=== PATIENT | female | born 1965 | race Caucasian/White ===

== ENCOUNTER → 2016-11-27 | Outpatient (CLI) | payer MEDICAID ==
[~2016-11-27] MED LIST: AMOX1TAB64 PO; BLOOD PRESSURE MED PO; FURO20TA3 PO; FURO40TA6 PO; KETOROLAC 30 MG/1 ML ONE; NICO1PAT4 TD; OXYC-302 PO; Oxycodone Hcl/Acetaminophen PO; POTA20TA14 PO; POTA20TA6 PO
[2016-11-27 14:51] LABS: ASPARTATE AMINO TRANSFERASE 81 U/L (15-37); BLOOD UREA NITROGEN 18 mg/dL (7-18)
== END | disposition home or self-care (01) ==
LOC: STAR 13:25
PROVIDERS: ATTEND Surgery
DX: Z01.818 Encounter for other preprocedural examination (principal); M65.022 Abscess of tendon sheath, left upper arm; L02.413 Cutaneous abscess of right upper limb
CPT/HCPCS: 36415; 80053; 85025

== ENCOUNTER 2016-12-01 08:09 | Day surgery (SDC) | payer MEDICAID ==
[~2016-12-01] VITALS: Ht 162.6 cm; Wt 62.0 kg
[~2016-12-01 08:09] MED LIST changes: -KETOROLAC 30 MG/1 ML ONE
[2016-12-01 08:41] VITALS: BP 184/108
[2016-12-01] MEDS ORDERED: LACTATED RINGERS 1,000 ML IV SCH (08:41)
[2016-12-01] MEDS ORDERED: LIDOCAINE 1%, 2ML ONE ×4 (08:42→12:25)
[2016-12-01] MEDS ORDERED: BUPIVACAINE/PF-EPI 0.5% 1:200K ONE (08:49)
[2016-12-01] MEDS ORDERED: FENTANYL PF 250 MCG/5ML ONE ×2 (10:09)
[2016-12-01] MEDS ORDERED: MIDAZOLAM 1 MG/ML, 2ML ONE ×2 (10:09)
[2016-12-01] MEDS ORDERED: BACITRACIN 50,000 UNIT ONE (10:10)
[2016-12-01] MEDS ORDERED: BACITRACIN OINT 500U/GM, 15 GM ONE (10:10)
[2016-12-01] MEDS ORDERED: NEOMY/POLYMYXIN B GU IRR. 1 ML IRRIG ONE (10:10)
[2016-12-01] MEDS ORDERED: PROPOFOL 10 MG/ML, 50ML ONE (10:18)
[2016-12-01] MEDS ORDERED: CEFAZOLIN 1,000 MG ONE (10:18)
[2016-12-01] MEDS ORDERED: ONDANSETRON 2MG/ML, 2ML ONE (10:18)
[2016-12-01] MEDS ORDERED: BUPIVACAINE/PF-EPI 0.5% 1:200K INFIL ONE (10:32)
[2016-12-01] MEDS ORDERED: OXYcodone 5 MG/5 ML ORAL.SOL UDC PO PRN (11:00)
[2016-12-01] MEDS ORDERED: PROMETHAZINE 25 MG/ML, 1ML IV PRN (11:00)
[2016-12-01] MEDS ORDERED: ACETAMINOPHEN 325 MG TABLET PO PRN (11:00)
[2016-12-01] MEDS ORDERED: HYDROmorphone 1 MG/ML, 1ML IV PRN (11:00)
[2016-12-01] MEDS ORDERED: FENTANYL PF 100 MCG/2ML IV PRN (11:00)
[2016-12-01] MEDS ORDERED: LABETALOL 5MG/ML, 20ML ONE (11:10)
[2016-12-01] MEDS: LABETALOL 5MG/ML, 20ML IVPush PRN ×2 (11:15→11:35)
[2016-12-01] MEDS ORDERED: OXYcodone 5 MG/5 ML ORAL.SOL UDC ONE (11:19)
[2016-12-01] MEDS ORDERED: FENTANYL PF 100 MCG/2ML ONE (11:26)
[2016-12-01] MEDS ORDERED: KETOROLAC 30 MG/1 ML IVPush SCH (13:00)
== END 2016-12-01 13:05 ==
LOC: OUT 08:09
PROVIDERS: ATTEND Surgery
DX: T81.89XA Other complications of procedures, not elsewhere classified, initial encounter (principal); M19.90 Unspecified osteoarthritis, unspecified site; Z90.710 Acquired absence of both cervix and uterus; F17.210 Nicotine dependence, cigarettes, uncomplicated; Z83.3 Family history of diabetes mellitus
CPT/HCPCS: 12036; J0690; J2250; J2405; J2704; J3010

== ENCOUNTER 2017-12-28 20:17 | Emergency (ER) | payer MEDICAID ==
[~2017-12-28] VITALS: Ht 167.6 cm; Wt 70.0 kg
[~2017-12-28 20:17] MED LIST changes: +NICO-486 TD; -NICO1PAT4 TD
[2017-12-28 20:27] VITALS: BP 129/89
== END 2017-12-28 21:26 | disposition home or self-care (01) ==
LOC: ED 21:20
DX: Z00.00 Encounter for general adult medical examination without abnormal findings (principal)
CPT/HCPCS: 99281

== ENCOUNTER 2018-04-15 19:16 | Emergency (ER) | payer MEDICAID ==
[~2018-04-15] VITALS: Ht 162.6 cm; Wt 59.2 kg
[2018-04-15] MEDS ORDERED: IBUPROFEN 200 MG TABLET ONE (20:02)
[2018-04-15 20:05] VITALS: BP 138/74
[2018-04-15] MEDS ORDERED: IBUPROFEN 200 MG TABLET PO ONE (20:30)
== END 2018-04-15 20:09 | disposition home or self-care (01) ==
LOC: ED 20:03
DX: S63.656A Sprain of metacarpophalangeal joint of right little finger, initial encounter (principal); I10 Essential (primary) hypertension; F17.200 Nicotine dependence, unspecified, uncomplicated; X50.1XXA Overexertion from prolonged static or awkward postures, initial encounter; Y93.9 Activity, unspecified; Y92.89 Other specified places as the place of occurrence of the external cause; Y99.8 Other external cause status
CPT/HCPCS: 93005; 99284

== ENCOUNTER 2020-02-24 16:09 | Emergency (ER) | payer MEDICAID ==
[~2020-02-24] VITALS: Ht 162.6 cm; Wt 65.0 kg
--- NOTE | 2020-02-24 16:18 | NUR ---
tried to do EKG on paint arrival but pt. was not willing to cooperate. Addendum: 02/24/20 at 1638 by AALEXCARO pt refused ekg on arrival
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
[2020-02-24] MEDS ORDERED: LORazepam 2 MG/ML, 1ML ONE ×2 (16:42→18:16)
--- NOTE | 2020-02-24 16:42 | NUR ---
ATTEMPTED TO DO EKG AGAIN AND PT. STILL REFUSED TO BE STILL. WILL ATTEMPT AGAIN SOON. PA IS AWARE OF PT.'S REFUSAL
[2020-02-24] MEDS ORDERED: LORazepam 2 MG/ML, 1ML IVPush ONE ×2 (17:00→18:30)
[2020-02-24] MEDS ORDERED: SODIUM CHLORIDE FLUSH 10ML SYR IVF ONE (17:00)
[2020-02-24] MEDS ORDERED: SODIUM CHLORIDE 0.9% 1,000ML IVBOLUS ONE (17:00)
--- NOTE | 2020-02-24 17:02 | NUR ---
PT MEDICATED PER EMAR. NS INFUSING AT THIS TIME. PT TOLERATED WELL.
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
[2020-02-24 17:09] LABS: BASOPHILS # (AUTO) 0.02 x10^3/uL (0-0.1); BASOPHILS % (AUTO) 0 % (0-1); EOSINOPHILS # (AUTO) 0.04 x10^3/uL (0-0.4); EOSINOPHILS % (AUTO) 0 % (1-7); LYMPHOCYTES # (AUTO) 1.55 x10^3/uL (1-3.4); LYMPHOCYTES % (AUTO) 17 % (22-44); MD NO; MEAN CORPUSCULAR HEMOGLOBIN 28.8 pg (27.0-34.8); MEAN CORPUSCULAR HGB CONC 32.7 g/dL (32.4-35.8); MEAN CORPUSCULAR VOLUME 87.9 fL (80-100); MEAN PLATELET VOLUME 8.5 fL (7.4-10.4); MONOCYTES # (AUTO) 0.49 x10^3/uL (0.2-0.8); MONOCYTES % (AUTO) 5 % (2-9); NEUTROPHILS # (AUTO) 6.97 x10^3/uL (1.8-6.8); NEUTROPHILS % (AUTO) 77 % (42-75); PLATELET COUNT 243 x10^3/uL (130-400); RED BLOOD COUNT 5.76 x10^6/uL (3.82-5.3); RED CELL DISTRIBUTION WIDTH 13.4 % (9.6-15.2)
[2020-02-24 17:19] LABS: ALANINE AMINOTRANSFERASE 156 U/L (12-78); ALBUMIN 3.8 g/dL (3.4-5.0); ANION GAP 9 mmol/L (5-15); CALCIUM 9.5 mg/dL (8.5-10.1); CHLORIDE 104 mmol/L (98-107); CREATININE 0.94 mg/dL (0.55-1.02)
[2020-02-24 17:21] LABS: ALKALINE PHOSPHATASE 151 U/L (45-117)
--- NOTE | 2020-02-24 17:41 | NUR ---
PT. REFUSED EKG.
--- NOTE | 2020-02-24 18:10 | NUR ---
pt screaming "i need help! you guys didn't do any for me. give me something"
[2020-02-24 18:17] VITALS: BP 169/108
--- NOTE | 2020-02-24 18:19 | NUR ---
PT MEDICATED PER EMAR. PT TOLERATED WELL.
--- NOTE | 2020-02-24 18:59 | NUR ---
REPORT GIVEN TO CECILIA DAWN.
--- NOTE | 2020-02-24 19:17 | NUR ---
PT STATES "I CAN'T MOVE MY LEGS." PT MOVING ALL EXTREMITIES IN BED, PT ABLE TO POSITION SELF WRONG WAY IN BED, MOVED HEAD TO FOOT OF BED AND FEET TO HEAD OF BED. PT CONTINUOSLY FLAYLING LEGS. PT STATES "YOU HAVEN'T GIVEN ME ANY MEDS." PT EDUCATED ABOUT THE MEDICATIONS SHE RECEIVED WELL THE RX SHE'S BEING D/C'D WITH. PT STATED "I WANT TO GO HOME, I HAVE SOMEONE AT HOME TO HELP ME." PT PROVIDED WITH TAXI VOUCHER. PT REQUESTED WHEELCHAIR TO D/C. PT ABLE TO LEFT LEG AND HOLD IT THERE WHILE THIS RN PUT SOCKS ON EACH FOOT. PT COMPETELY WEIGHT BARING FROM GURNEY TO WHEELCHAIR.
== END 2020-02-24 19:23 | disposition home or self-care (01) ==
LOC: ED 18:33
DX: M62.830 Muscle spasm of back (principal); F11.23 Opioid dependence with withdrawal; M79.662 Pain in left lower leg; M79.661 Pain in right lower leg; M19.90 Unspecified osteoarthritis, unspecified site; I10 Essential (primary) hypertension; F17.200 Nicotine dependence, unspecified, uncomplicated
CPT/HCPCS: 36415; 80053; 85025; 96361; 96374; 96376; 99284; J2060; J7030

== ENCOUNTER 2020-05-21 11:00 | Inpatient (IN) | payer MEDICAID ==
[~2020-05-21] VITALS: Ht 154.9 cm; Wt 66.2 kg
[2020-05-21 13:13] LABS: BASOPHILS % (AUTO) 1 % (0-1); EOSINOPHILS % (AUTO) 3 % (1-7); LYMPHOCYTES % (AUTO) 31 % (22-44); MEAN CORPUSCULAR HEMOGLOBIN 29.8 pg (27.0-34.8); MEAN CORPUSCULAR HGB CONC 33.8 g/dL (32.4-35.8); MEAN PLATELET VOLUME 8.3 fL (7.4-10.4); MONOCYTES % (AUTO) 8 % (2-9); NEUTROPHILS % (AUTO) 57 % (42-75); PLATELET COUNT 186 x10^3/uL (130-400); RED BLOOD COUNT 4.91 x10^6/uL (3.82-5.3); RED CELL DISTRIBUTION WIDTH 14.9 % (9.6-15.2)
[2020-05-21 13:17] LABS: MD NO
[2020-05-21 13:23] LABS: ALBUMIN 3.7 g/dL (3.4-5.0); ANION GAP 5 mmol/L (5-15); CALCIUM 9.2 mg/dL (8.5-10.1); CHLORIDE 105 mmol/L (98-107); INTERNATIONAL NORMALIZED RATIO 1.05 (0.93-1.1); PROTHROMBIN TIME 11.1 Seconds (9.6-11.5)
[2020-05-21 13:27] LABS: ALANINE AMINOTRANSFERASE 89 U/L (12-78); ALKALINE PHOSPHATASE 111 U/L (45-117); BILIRUBIN,TOTAL 0.6 mg/dL (0.2-1.0); CREATININE 0.58 mg/dL (0.55-1.02); TOTAL PROTEIN 8.2 g/dL (6.4-8.2)
[2020-05-22] MEDS ORDERED: METHYLENE BLUE 50 MG/10 ML AMP ONE (07:15)
[2020-05-22] MEDS ORDERED: BACITRACIN 50,000 UNIT ONE (07:15)
[2020-05-22] MEDS ORDERED: VANCOMYCIN 1,000 MG ONE (07:15)
[2020-05-22] MEDS ORDERED: THROMBIN 20,000 UNIT VIAL TP ONE (07:15)
[2020-05-22] MEDS ORDERED: BUPIVACAINE/PF 0.5% ONE (07:15)
[2020-05-22] MEDS ORDERED: BACITRACIN OINT 500U/GM, 15 GM ONE (07:15)
[2020-05-22] MEDS ORDERED: EPINEPHRINE 1 MG/ML, 1ML ONE (07:15)
[2020-05-22] MEDS ORDERED: CHLORHEXIDINE 15 ML UDC ONE (09:15)
[2020-05-22] MEDS ORDERED: FENTANYL PF 100 MCG/2ML ONE ×4 (09:20→14:15)
[2020-05-22] MEDS ORDERED: MIDAZOLAM 1 MG/ML, 2ML ONE (09:20)
[2020-05-22] MEDS ORDERED: NO MEDS PER PATIENT (09:22)
[2020-05-22] MEDS ORDERED: LACTATED RINGERS 1,000 ML IV SCH (09:30)
[2020-05-22] MEDS ORDERED: CHLORHEXIDINE 15 ML UDC MM ONE (09:30)
[2020-05-22] MEDS ORDERED: SUCCINYLCHOLINE 20 MG/ML, 10ML ONE (10:35)
[2020-05-22] MEDS ORDERED: SUGAMMADEX 200 MG/2 ML IVPush ONE (10:35)
[2020-05-22] MEDS ORDERED: PHENYLEPHRINE 10 MG/ML ONE (10:35)
[2020-05-22] MEDS ORDERED: PROPOFOL 50 ML ONE (12:01)
[2020-05-22] MEDS ORDERED: ONDANSETRON 2MG/ML, 2ML ONE (12:03)
[2020-05-22] MEDS ORDERED: PROPOFOL 10 MG/ML, 20ML ONE (12:03)
[2020-05-22] MEDS ORDERED: CEFAZOLIN 1,000 MG ONE (12:03)
[2020-05-22] MEDS ORDERED: DEXAMETHASONE 4 MG/ML, 1ML ONE (12:03)
[2020-05-22] MEDS ORDERED: ENALAPRILAT 1.25 MG/ML, 2ML IV PRN (12:30)
[2020-05-22] MEDS ORDERED: MEPERIDINE/PF 25MG/0.5ML IVPush PRN (13:00)
[2020-05-22] MEDS ORDERED: HYDROcodone/APAP 7.5-325MG/15ML UDC PO PRN (13:00)
[2020-05-22] MEDS ORDERED: PROMETHAZINE 25 MG/ML, 1ML IVPush PRN (13:00)
[2020-05-22] MEDS ORDERED: METHOCARBAMOL 1,000 MG in DEXTROSE 5% 100 ML IV PRN (13:00)
[2020-05-22] MEDS ORDERED: OXYcodone 5 MG/5 ML ORAL.SOL UDC ONE ×2 (13:14→15:21)
[2020-05-22] MEDS ORDERED: HYDROmorphone 1 MG/ML, 1ML INJ ONE ×2 (13:14→14:15)
[2020-05-22] MEDS: HYDROmorphone 1 MG/ML, 1ML INJ IVPush PRN ×4 (13:38→14:28)
[2020-05-22] MEDS: FENTANYL PF 100 MCG/2ML IV PRN ×4 (13:44→15:16)
[2020-05-22] MEDS: OXYcodone 5 MG/5 ML ORAL.SOL UDC PO PRN ×2 (13:54→15:24)
[2020-05-22 15:09] LABS: AMPHETAMINE SCREEN, URINE Negative (Negative); BARBITURATE SCREEN, URINE Negative (Negative); BENZODIAZEPINE SCREEN, URINE Positive (Negative); CANNABINOID SCREEN, URINE Negative (Negative); COCAINE SCREEN, URINE Negative (Negative); METHADONE SCREEN, URINE Negative (Negative); OPIATE SCREEN, URINE Positive (Negative)
[2020-05-22] MEDS ORDERED: hydrALAzine 20 MG/ML, 1ML ONE (15:20)
[2020-05-22] MEDS ORDERED: hydrALAzine 20 MG/ML, 1ML IV PRN (15:30)
[2020-05-22] MEDS ORDERED: LABETALOL 5MG/ML, 20ML IV PRN (15:30)
[2020-05-22] MEDS ORDERED: DIAZEPAM 5 MG/ML, 2ML ONE (17:05)
[2020-05-22] MEDS ORDERED: DIAZEPAM 5 MG/ML, 2ML IV ONE (17:30)
[2020-05-22] MEDS ORDERED: MAGNESIUM HYDROXIDE 8%, 30ML UDC PO PRN (18:00)
[2020-05-22] MEDS ORDERED: PROMETHAZINE 25 MG/ML, 1ML IM PRN (18:00)
[2020-05-22] MEDS ORDERED: BISACODYL 10 MG SUPP PR PRN (18:00)
[2020-05-22] MEDS ORDERED: ONDANSETRON 2MG/ML, 2ML IV PRN (18:00)
[2020-05-22] MEDS ORDERED: HYDROcodone/APAP 5/325 TABLET PO PRN (18:00)
[2020-05-22] MEDS ORDERED: ACETAMINOPHEN 650 MG SUPP PR PRN (19:00)
[2020-05-22] MEDS ORDERED: ACETAMINOPHEN 325 MG TABLET PO PRN (19:00)
[2020-05-22 19:24] VITALS: BP 133/89
[2020-05-22] MEDS: HYDROcodone/APAP 10/325 MG TABLET PO PRN ×2 (19:27→19:59)
[2020-05-22] MEDS: CEFAZOLIN PMX 2GM/50ML 50 ML IVPB SCH (19:40)
[2020-05-22] MEDS: DEXAMETHASONE 4 MG/ML, 1ML IV SCH (20:02)
[2020-05-22] MEDS: METHOCARBAMOL 750 MG in DEXTROSE 5% 100 ML IV SCH (22:00)
[2020-05-22] MEDS: NS + 20MEQ KCL 1,000 ML IV SCH (22:00)
[2020-05-23] MEDS: HYDROcodone/APAP 10/325 MG TABLET PO PRN ×3 (00:38→08:47)
[2020-05-23 00:42] VITALS: BP 126/95
[2020-05-23] MEDS: DEXAMETHASONE 4 MG/ML, 1ML IV SCH ×2 (02:17→08:47)
[2020-05-23 04:17] VITALS: BP 141/103
[2020-05-23] MEDS: CEFAZOLIN PMX 2GM/50ML 50 ML IVPB SCH ×2 (06:09→09:54)
[2020-05-23 07:59] VITALS: BP 146/92
[2020-05-23] MEDS: SENNA/DOCUSATE TABLET PO SCH (08:47)
[2020-05-23] MEDS: METHOCARBAMOL 750 MG in DEXTROSE 5% 100 ML IV SCH (08:47)
[2020-05-23] MEDS: LOSARTAN 25MG TABLET PO SCH (08:48)
[2020-05-23] MEDS ORDERED: DEXAMETHASONE 4 MG TABLET PO SCH (10:00)
[2020-05-23] MEDS: CYCLOBENZAPRINE 10 MG TABLET PO SCH ×2 (10:00→18:05)
[2020-05-23] MEDS: MAGNESIUM HYDROXIDE 8%, 30ML UDC PO SCH (10:07)
[2020-05-23] MEDS ORDERED: MEPERIDINE/PF 100 MG/ML IM ONE (10:30)
[2020-05-23] MEDS ORDERED: hydrALAzine 20 MG/ML, 1ML IV PRN (11:00)
[2020-05-23] MEDS ORDERED: OXYC-307 PO (11:51)
[2020-05-23] MEDS ORDERED: CYCL-259 PO (11:51)
[2020-05-23] MEDS: OXYcodone/APAP 10/325MG TABLET PO PRN ×3 (12:25→22:01)
[2020-05-23] MEDS: NS + 20MEQ KCL 1,000 ML IV SCH (12:53)
[2020-05-23 14:30] VITALS: BP 135/97
[2020-05-23] MEDS ORDERED: KETOROLAC 30 MG/1 ML IM ONE (15:00)
[2020-05-23] MEDS ORDERED: methylPREDNISolone *ACETATE* 40 MG/ML IM ONE (15:00)
[2020-05-23 19:52] VITALS: BP 146/98
[2020-05-24] MEDS ORDERED: OXYcodone/APAP 10/325MG TABLET PO ONE (00:30)
[2020-05-24] MEDS ORDERED: OXYcodone/APAP 10/325MG TABLET ONE (00:34)
[2020-05-24] MEDS: CYCLOBENZAPRINE 10 MG TABLET PO SCH ×3 (02:34→17:47)
[2020-05-24 02:36] VITALS: BP 131/78
[2020-05-24] MEDS: OXYcodone/APAP 10/325MG TABLET PO PRN ×5 (04:27→21:12)
[2020-05-24] MEDS: NS + 20MEQ KCL 1,000 ML IV SCH ×2 (04:46→20:39)
[2020-05-24 07:31] VITALS: BP 140/84
[2020-05-24] MEDS: LOSARTAN 25MG TABLET PO SCH (08:48)
[2020-05-24] MEDS: MAGNESIUM HYDROXIDE 8%, 30ML UDC PO SCH (09:00)
[2020-05-24] MEDS: SENNA/DOCUSATE TABLET PO SCH (09:00)
[2020-05-24] MEDS ORDERED: KETOROLAC 30 MG/1 ML IV ONE ×2 (10:30→18:30)
[2020-05-24 14:43] VITALS: BP 134/81
[2020-05-24 19:10] VITALS: BP 143/90
[2020-05-24] MEDS ORDERED: METHOCARBAMOL 750 MG TABLET PO SCH (21:30)
[2020-05-25] MEDS: OXYcodone/APAP 10/325MG TABLET PO PRN ×4 (01:21→13:39)
[2020-05-25 01:23] VITALS: BP 128/88
[2020-05-25] MEDS: CYCLOBENZAPRINE 10 MG TABLET PO SCH ×2 (03:06→11:00)
[2020-05-25 08:05] VITALS: BP 140/97
[2020-05-25] MEDS ORDERED: LOSARTAN 100 MG TAB PO SCH (09:00)
[2020-05-25] MEDS: MAGNESIUM HYDROXIDE 8%, 30ML UDC PO SCH (09:19)
[2020-05-25] MEDS: SENNA/DOCUSATE TABLET PO SCH (09:20)
[2020-05-25 12:28] VITALS: BP 125/89
[2020-05-25] MEDS: NS + 20MEQ KCL 1,000 ML IV SCH (12:32)
== END 2020-05-25 13:45 | disposition home or self-care (01) | DRG 321 ==
LOC: ORIP 05-22 09:00 → 4NE 05-22 17:39 → EDSTATUS 05-22 18:00
PROVIDERS: ADMIT Neurological Surgery; ATTEND Neurological Surgery
PROC: 0RG2071 Fusion of 2 or more Cervical Vertebral Joints with Autologous Tissue Substitute, Posterior Approach, Posterior Column, Open Approach (ICD-10-PCS; 2020-05-22)
PROC: 0RG20K1 Fusion of 2 or more Cervical Vertebral Joints with Nonautologous Tissue Substitute, Posterior Approach, Posterior Column, Open Approach (ICD-10-PCS; 2020-05-22)
PROC: 01N10ZZ Release Cervical Nerve, Open Approach (ICD-10-PCS; 2020-05-22)
PROC: 0RG20AJ Fusion of 2 or more Cervical Vertebral Joints with Interbody Fusion Device, Posterior Approach, Anterior Column, Open Approach (ICD-10-PCS; principal; 2020-05-22 10:00)
DX: M47.12 Other spondylosis with myelopathy, cervical region (principal); M48.02 Spinal stenosis, cervical region; I10 Essential (primary) hypertension; F11.10 Opioid abuse, uncomplicated; G95.89 Other specified diseases of spinal cord; Z82.49 Family history of ischemic heart disease and other diseases of the circulatory system; Z83.3 Family history of diabetes mellitus
CPT/HCPCS: 36415; 71046; 72040; 72050; 80053; 80307; 80323; 85025; 85610; 85730; 86850; 86900; 87635; 93005; 95938; 95941; C1713; G0378; J0171; J0690; J1100; J1170; J2250; J2405; J2704; J3010; J3360; J3370; J3480; Q9968; C1762; G0480; J0330; J0360; J1030; J2175; J2370; J2800; J7120